=== PATIENT | female | born 1965 | race Two or more races ===

== ENCOUNTER 2020-09-24 11:55 | Emergency (ER) | payer OTHER ==
[~2020-09-24] VITALS: Ht 160 cm; Wt 84.4 kg
[2020-09-24 12:46] VITALS: BP 127/58
[2020-09-24] MEDS ORDERED: methylPREDNISolone SOD SUCC 125 MG/2 ML VL IM ONE (13:45)
== END 2020-09-24 14:26 | disposition home or self-care (01) ==
LOC: ER 11:55 → EDSEX 11:55 → ER 14:26
DX: J20.9 Acute bronchitis, unspecified (principal); F17.210 Nicotine dependence, cigarettes, uncomplicated; I10 Essential (primary) hypertension
CPT/HCPCS: 71046; 96372; 99283; J2930